=== PATIENT | female | born 1940 | race Caucasian/White ===

== ENCOUNTER 2022-02-16 15:25 | Observation (INO) ==
[2022-02-16 16:40] LABS: Basophils % 0.4 % (0.0-0.8); Eosinophils # 0.1 10*3/uL (0.0-0.87); Eosinophils % 1.4 % (0.00-10.9); Hematocrit 39.7 VOL% (35.7-47.0); Hemoglobin 13.3 GM/DL (12.0-16.0); Immature Granulocytes % 0.5 %; Immature Granulocytes Absolute 0.05 #; Lymphocytes # 2.7 10*3/uL (1.4-4.0); Lymphocytes % 26.6 % (21.3-54.2); Mean Corpuscular HGB Conc 33.5 GM/DL (32-36); Mean Corpuscular Volume 93.9 FL (87-102); Mean Platelet Volume 10.3 FL (9.6-12.0); Monocytes # 0.6 10*3/uL (0.11-0.8); Monocytes % 5.9 % (1.7-12.7); Neutrophils % 65.2 % (38.7-73.9); Platelet Count 240 T/CUMM (130-400); Red Blood Count 4.23 MC/CUMM (3.8-5.5); Red Cell Distribution Width 14.6 % (9.3-17.3); White Blood Count 10.2 T/CUMM (4-12)
[2022-02-16 16:52] LABS: PT Patient Result 10.9 SECS (10.5-12.0)
[2022-02-16 17:13] LABS: Albumin 3.7 G/DL (3.4-5.0); Bilirubin,Total 0.4 MG/DL (0.20-1.00); Calcium 9.6 MG/DL (8.5-10.1); Osmolality,Calculated 286.8 MOS/KG (273-304); Potassium 3.8 MMOL/L (3.5-5.1); Thyroid Stimulating Hormone 2.61 uIU/ml (0.358-3.74); Total Protein 7.1 G/DL (6.4-8.2)
[2022-02-16 18:18] LABS: Hyaline Casts,Urine 1 /LPF (0-3); Mucus,Urine Occasional /LPF (Occasional); RBC,Urine 18 /HPF (0-4)
[2022-02-16 18:20] LABS: Glucose,Urine (UA) Negative (Negative); Ketones,Urine Negative (Negative); Protein,Urine Negative (Negative); Urine Appearance Clear (Clear); Urine Color Yellow (Yellow); Urine pH 5.5 (4.5-8.0)
[2022-02-16 18:21] LABS: Bilirubin,Urine Negative (Negative); Blood, Urine Moderate mg/dL (Negative); Nitrite,Urine Negative (Negative); Urine Urobilinogen 0.2 eU/dL (<2.0)
[2022-02-16] MEDS: cloNIDine 0.1 MG TABLET PO SCH (22:20)
[2022-02-17 05:23] LABS: Basophils % 0.4 % (0.0-0.8); Eosinophils # 0.2 10*3/uL (0.0-0.87); Eosinophils % 1.9 % (0.00-10.9); Hematocrit 35.5 VOL% (35.7-47.0); Immature Granulocytes % 0.3 %; Immature Granulocytes Absolute 0.03 #; Lymphocytes # 3.1 10*3/uL (1.4-4.0); Lymphocytes % 30.6 % (21.3-54.2); Mean Corpuscular HGB Conc 33.8 GM/DL (32-36); Mean Corpuscular Volume 93.9 FL (87-102); Mean Platelet Volume 10.6 FL (9.6-12.0); Monocytes # 0.7 10*3/uL (0.11-0.8); Monocytes % 7.1 % (1.7-12.7); Neutrophils % 59.7 % (38.7-73.9); Platelet Count 211 T/CUMM (130-400); Red Blood Count 3.78 MC/CUMM (3.8-5.5); Red Cell Distribution Width 14.5 % (9.3-17.3); White Blood Count 10.2 T/CUMM (4-12)
[2022-02-17 05:40] LABS: Alanine Aminotransferase 19 U/L (13-56); Albumin 3.1 G/DL (3.4-5.0); Alkaline Phosphatase 89 U/L (45-117); Aspartate Amino Transferase 14 U/L (0-37); Bilirubin,Total < 0.39 MG/DL (0.20-1.00); Blood Urea Nitrogen 14 MG/DL (7-18); Carbon Dioxide 27 MMOL/L (21-32); Chloride 111 MMOL/L (98-107); Glucose 104 MG/DL (74-106); Potassium 3.1 MMOL/L (3.5-5.1); Sodium 143 MMOL/L (136-145); Total Protein 6.6 G/DL (6.4-8.2)
[2022-02-17] MEDS ORDERED: ASPIRIN 325 MG TABLET PO SCH (09:00)
[2022-02-17] MEDS: hydroCHLOROthiazide 25 MG TABLET PO SCH (09:58)
[2022-02-17] MEDS: allopurinoL 300 MG TABLET PO SCH (09:58)
[2022-02-17] MEDS: amLODIPine 5 MG TABLET PO SCH (09:59)
[2022-02-17] MEDS: PANTOPRAZOLE 40 MG TABLET PO SCH (09:59)
[2022-02-17] MEDS: VALSARTAN 160 MG TABLET PO SCH (10:00)
[2022-02-17] MEDS: cloNIDine 0.1 MG TABLET PO SCH ×2 (10:00→21:25)
[2022-02-17] MEDS ORDERED: POTASSIUM CHLORIDE 20 MEQ TABLET PO PRN (10:36)
[2022-02-17 11:00] LABS: Risk Ratio 2.95; VLDL Cholesterol 33.2 MG/DL
[2022-02-17] MEDS ORDERED: ROSUVASTATIN 10 MG TABLET PO SCH (11:00)
[2022-02-17] MEDS ORDERED: POTASSIUM CHLORIDE 20 MEQ TABLET PO ONE (11:00)
[2022-02-17] MEDS ORDERED: ATORVASTATIN 80 MG TABLET PO SCH (21:00)
[2022-02-17] MEDS: APIXABAN 5 MG TABLET PO SCH (21:26)
[2022-02-18] MEDS ORDERED: ATORVASTATIN 80 MG TABLET PO SCH (09:00)
[2022-02-18] MEDS: VALSARTAN 160 MG TABLET PO SCH (09:38)
[2022-02-18] MEDS: amLODIPine 5 MG TABLET PO SCH (09:38)
[2022-02-18] MEDS: allopurinoL 300 MG TABLET PO SCH (09:38)
[2022-02-18] MEDS: APIXABAN 5 MG TABLET PO SCH (09:38)
[2022-02-18] MEDS: cloNIDine 0.1 MG TABLET PO SCH (09:38)
[2022-02-18] MEDS: hydroCHLOROthiazide 25 MG TABLET PO SCH (09:38)
[2022-02-18] MEDS: PANTOPRAZOLE 40 MG TABLET PO SCH (09:39)
[2022-02-18 15:11] VITALS: BP 141/59
[2022-02-18] MEDS ORDERED: ASPIRIN EC 81 MG TABLET PO SCH (17:26)
== END 2022-02-18 15:47 | disposition home or self-care (01) ==
LOC: N.ED 15:25 → N.EDINP 15:25 → N.3E 22:30
PROVIDERS: ADMIT Internal Medicine; ATTEND Internal Medicine